=== PATIENT | male | born 1995 | race Two or more races ===

== ENCOUNTER 2021-02-09 11:02 | Emergency (ER) | payer OTHER, SELFPAY ==
--- NOTE | ~2021-02-09 | XR_ITS ---
EXAMINATION: XR FINGER, LEFT CLINICAL INFORMATION: Laceration. Pain COMPARISON: None TECHNIQUE: 3 views of the left second digit. FINDINGS: No fracture, dislocation or destructive lesion or radiopaque foreign body. XR/XR finger LT min 2V IMPRESSION: Normal finger radiographs.
[2021-02-09 11:54] VITALS: BP 158/94; PULSE 68; RESP 18; TEMP 36.1; O2SAT 100; BMI 36.0
--- NOTE | 2021-02-09 14:50 | ED_ITS ---
HPI - Wound/Laceration General Chief Complaint: Wound/Laceration Stated Complaint: Left Finger Lac WC 02/09/21 Time Seen by Provider: 02/09/21 14:50 Source: patient Mode of arrival: ambulatory Limitations: no limitations History of Present Illness HPI narrative: This is a 25-year-old male who presents the emergency department with a work related injury to his left 2ndd distal digit. Patient tells me that he was cutting something with a razor and he caught himself. He cleaned the area well. Bleeding is well controlled. He denies paresthesias, numbness, tingling, inability to move the finger. He denies fevers, chills, nausea, vomiting, chest pain, shortness of breath. He is unsure of his tetanus status Onset (ago): minute(s) (2) Location: other (left second digit ) Place: work Patient tetanus UTD: No Context: accidental Associated symptoms: none Related Data Allergies Allergy/AdvReac Type Severity Reaction Status Date / Time No Known Allergies Allergy Verified 02/09/21 12:03 Review of Systems Review of Systems: Constitutional : No Fever, No Chills, Cardiovascular : No Chest Pain, No SOB Respiratory : No Dyspnea Gastrointestinal : No abdominal pain Musculoskeletal : No Joint Swelling Skin : No rash, positive skin laceration Neuro : No Weakness, No Numbness Psych : No SI/HI Yes all other systems are reviewed and are negative [facility] Past Medical History Attestation statement: The following information was validated with the patient. Source: old records reviewed and nursing notes reviewed Medical History Testicle cancer Surgical History H/O removal of testicle Social History Social History Advance Directives: No Advance Directives Information Provided: Yes Physical Exam Vital Signs: Vital Signs: Last Vital Signs Temp 96.9 F 02/09/21 11:54 Pulse 68 02/09/21 11:54 Resp 18 02/09/21 11:54 BP 158/94 H 02/09/21 11:54 Pulse Ox 100 02/09/21 11:54 BMI result Body Mass Index 36.0 VSS Appearance: Alert.? Oriented X3.? No acute distress.? Head: Normocephalic, atraumatic, no step-offs or deformities Eyes: Pupils equal, round and reactive to light.? ENT: Pharynx normal.? Neck: Normal inspection.? Neck supple.? CVS: Normal heart rate and rhythm.? Pulses normal.? Respiratory: No respiratory distress.? Breath sounds normal.? Abdomen: Soft and nontender.? Skin: Skin warm and dry.? Normal skin color.? Normal skin turgor.? + 4 cm superficial linear laceration to ventral aspect of left hand distal second digit. No evident ligament or tendon involvement. Full range of motion to all fingers bilaterally. Extremities: No lower extremity edema.? No calf ttp. 5/5 strength to bilateral upper and lower extremities Back: No midline tenderness, no C-spine tenderness, full range of motion, no CVA tenderness bilaterally Neuro: Oriented X 3.? No motor deficit.? No sensory deficit. MDM - Wound/Laceration MDM Narrative Medical decision making narrative: 1510 25-year-old male presents to the emergency department with a work related injury, patient sustained a cut with a razor blade at work to his left 2nd distal digit. Unsure of tetanus status. Upon physical examination there is a 4 cm superficial linear laceration to ventral aspect of left hand distal second digit. No evident ligament or tendon involvement. Full range of motion to all fingers bilaterally. Plan at this time is to close the area with Steri-Strips, Dermabond. Patient will be given his tetanus shot. Medical Records Attestation: I reviewed the patient's medical records. Lab Data Attestation: I reviewed the patient's lab results. Imaging Data Left hand xray: Attestation: I personally reviewed and interpreted this imaging study as follows: Radiologist's impression: FINDINGS: No fracture, dislocation or destructive lesion or radiopaque foreign body.? XR/XR finger LT min 2V IMPRESSION: Normal finger radiographs. ? Critical Care Time Critical Care Time Critical Care Time: No Discharge Plan Discharge Clinical Impression: Laceration, Work related injury Patient Disposition: Home, Self-Care Instructions: Laceration (ED) Additional Instructions: Take your medications as prescribed. If you were prescribed antibiotics today, it is important that you take your medication to their entirety, do not skip any doses, do not finish them early. Follow-up with your primary care provider this week. Return to the emergency department with new or worsening symptoms. In case of emergency call 911 Follow-up with the were connection [phone] Keep area clean, dry and intact Referrals: Physician,Unknown J [Primary Care Provider] - 2 days Stand Alone Forms: Work/School Release
[2021-02-09] MEDS: Diphth,Pertus(ACell),Tet Adult 0.5 ML SYRINGE IM (15:38)
== END 2021-02-09 15:56 | disposition home or self-care (01) ==
PROVIDERS: Emergency Provider Emergency Medicine
DX: S61.211A Laceration without foreign body of left index finger without damage to nail, initial encounter (principal); W26.8XXA Contact with other sharp object(s), not elsewhere classified, initial encounter; Y93.9 Activity, unspecified; Y92.9 Unspecified place or not applicable; Y99.0 Civilian activity done for income or pay
CPT/HCPCS: 12002; 73140; 90471; 90715; 99283; 99284